=== PATIENT | female | born 1965 ===

== ENCOUNTER 2017-09-07 13:51 | Emergency (ER) | payer MEDICAID ==
[2017-09-07 13:51] VITALS: BMI 24.3
[2017-09-07] MEDS ORDERED: Sodium Chloride 0.9% 1,000 ML IV ONE (14:40)
[2017-09-07] MEDS ORDERED: Dexamethasone 4 mg/1 ml IVP STA (14:41)
[2017-09-07] MEDS ORDERED: Dexamethasone 4 mg/1 ml ONE (14:57)
[2017-09-07] MEDS ORDERED: Sodium Chloride 0.9% 1,000 ML ONE (14:58)
[2017-09-07 15:19] LABS: BASO # 0.1 K/uL (0.0-0.2); EOS # 0.1 K/uL (0.0-0.7); EOS % 1.4 % (0.0-4.0); HEMOGLOBIN 14.1 g/dL (11.0-16.0); LYMPH # 2.5 K/uL (1.0-4.3); LYMPH % 29.3 % (20.0-40.0); MEAN CELL VOLUME 89.1 fL (81.0-99.0); MEAN CORPUSCULAR HGB CONC 34.8 g/dL (33.0-37.0); MONO # 0.7 K/uL (0.0-0.8); MONO % 8.5 % (0.0-10.0); NEUT # 5.1 K/uL (1.8-7.0); NEUT % 59.8 % (50.0-75.0); RBC 4.54 Mil/uL (3.80-5.20); WHITE BLOOD COUNT 8.5 K/uL (4.8-10.8)
[2017-09-07 15:32] LABS: ALB/GLOB RATIO 1.4 (1.0-2.1); ALBUMIN 4.8 g/dL (3.5-5.0); ALT/SGPT 54 U/L (9-52); AST/SGOT 34 U/L (14-36); BLOOD UREA NITROGEN 18 mg/dL (7-17); CALCIUM 9.3 mg/dl (8.6-10.4); GFR AFRICAN-AMERICAN > 60; GFR NON-AFRICAN AMERICAN 58; LIPASE 51 U/L (23-300)
--- NOTE | 2017-09-07 15:56 | C.PDOC ---
History Of Present Illness Pt c/o tongue/mouth pain. 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 She failed to follow up after that. Time Seen by Provider: 09/07/17 14:25 Chief Complaint (Nursing): ENT Problem History Per: Patient Onset/Duration Of Symptoms: Days Current Symptoms Are (Timing): Still Present Quality (Mouth/Throat): Tenderness, Swelling Symptoms Have Been: Continuous Severity: Moderate Past Medical History Reviewed: Historical Data, Nursing Documentation, Vital Signs Vital Signs: Last Vital Signs Temp 98.3 F 09/07/17 13:58 Pulse 89 09/07/17 13:58 Resp 20 09/07/17 13:58 BP 144/87 09/07/17 13:58 Pulse Ox 98 09/07/17 13:58 - Medical History PMH: Anxiety, Arthritis, Asthma (no inhalers), Depression, Diabetes, Diverticulitis, Fibromyalgia, Hepatitis, Hypercholesterolemia, Rheumatoid Arthritis Surgical History: Endoscopy - [facility] Procedures COLONOSCOPY (11/28/14) ENDO EXCISION/DEST OF LESION OR TISSUE OF STOMACH (11/21/14) VACCINATION NEC (10/12/14) Family History: States: Unknown Family Hx - Social History Hx Tobacco Use: Yes Hx Alcohol Use: No Hx Substance Use: Yes (last use 1.5 month ago) - Immunization History Hx Tetanus Toxoid Vaccination: No Hx Influenza Vaccination: No Hx Pneumococcal Vaccination: No Review Of Systems Except As Marked, All Systems Reviewed And Found Negative. Constitutional: Negative for: Fever, Weakness ENT: Positive for: Mouth Pain. Negative for: Throat Pain, Throat Swelling Cardiovascular: Negative for: Chest Pain Respiratory: Negative for: Shortness of Breath Gastrointestinal: Negative for: Vomiting, Abdominal Pain Neurological: Negative for: Weakness, Numbness Physical Exam - Physical Exam Appears: Non-toxic, No Acute Distress Skin: Normal Color, Warm, Dry Head: Atraumatic, Normacephalic Eye(s): bilateral: PERRL, EOMI Oral Mucosa: Moist, No Drooling, No Trismus Tongue: Lesions Gingiva: Tender Throat: Normal Neck: Normal ROM, Supple Lymphatic: Adenopathy (submandibular) Cardiovascular: Rhythm Regular Respiratory: Normal Breath Sounds, No Accessory Muscle Use Gastrointestinal/Abdominal: Soft, No Tenderness Extremity: Normal ROM Neurological/Psych: Oriented x3, Normal Speech, Normal Motor, Normal Sensation ED Course And Treatment - Laboratory Results Result Diagrams: 09/07/17 15:16 09/07/17 15:16 Lab Interpretation: No Acute Changes O2 Sat by Pulse Oximetry: 98 Pulse Ox Interpretation: Normal Reassessment Condition: Improved Progress - Interventions Interventions:: Observation, Intravenous fluid - Medications Administered Intravenous: Corticosteroid - Data Reviewed Data Reviewed: Lab, Old records - Patient Status Patient status: Mostly improved - Continuity of Care Discussed patient case with:: Patient, ED Nurse - Patient Plan Patient Plan: Discharge, F/U with PCP, Continue present meds Disposition Counseled Patient/Family Regarding: Studies Performed, Diagnosis, Need For Followup, Rx Given, Smoking Cessation - Disposition Referrals: Simi Fish MD [Staff Provider] - Disposition: HOME/ ROUTINE Disposition Time: 15:58 Condition: FAIR Additional Instructions: Follow up with your doctor this week for further evaluation and treatment, including referral to an oral surgeon. Return to the ER if you develop trouble breathing or swallowing, worsening of symptoms or if you have any other concerns. Prescriptions: Amoxicillin 875 mg PO BID #20 tab Lidocaine HCl [Lidocaine HCl Viscous] 15 ml MM QID PRN #1 solution PRN Reason: Pain, Moderate (4-7) Forms: [facility] (B[place]an), Gen Discharge Inst Mongolian, General Discharge Instructions - Clinical Impression Clinical Impression: Tongue lesion, Mouth pain
[2017-09-07 16:20] VITALS: BP 126/73; PULSE 69; RESP 19; TEMP 98.7; O2SAT 99
== END 2017-09-07 16:21 | disposition home or self-care (01) ==
LOC: C.ER 13:51
DX: K14.9 Disease of tongue, unspecified (principal); K13.79 Other lesions of oral mucosa; E78.00 Pure hypercholesterolemia, unspecified; E11.9 Type 2 diabetes mellitus without complications; M79.7 Fibromyalgia; Z72.0 Tobacco use
CPT/HCPCS: 80053; 83690; 85025; 96374; 96375; 99285; C9113; J1100; J7030